=== PATIENT | female | born 1990 | race Caucasian/White ===

== ENCOUNTER 2017-12-08 23:32 | Inpatient (IN) ==
[2017-12-08] MEDS ORDERED: Famotidine 20 MG/2 ML VIAL IVP PRN (23:36)
[2017-12-08] MEDS ORDERED: Metoclopramide 10 MG/2 ML VIAL IVP PRN (23:36)
[2017-12-08] MEDS ORDERED: Naloxone 0.4 MG/ML INJ IVP PRN (23:36)
[2017-12-08] MEDS ORDERED: *HR* Nalbuphine 20 MG/ML AMPUL IVP PRN (23:36)
[2017-12-08] MEDS ORDERED: Ringers Solution, Lactated 1,000 ML IVC SCH (23:45)
[2017-12-08 23:57] LABS: Basophils % 0.3 %; Eosinophils # 0.1 K/mcL (0.0-0.6); Eosinophils % 0.8 %; Hematocrit 40.8 % (35.3-44.9); Hemoglobin 14.1 g/dL (11.5-15.4); Immature Granulocytes % 0.7 % (0-4); Lymphocytes # 2.7 K/mcL (0.6-4.6); Lymphocytes % 21.7 %; Mean Corpuscular HGB Conc 34.6 g/dL (31.6-35.5); Mean Corpuscular Hemoglobin 31.7 pg (28.0-33.3); Mean Corpuscular Volume 91.7 fL (83.0-100.0); Mean Platelet Volume 10.9 fL (9.4-12.4); Monocytes # 0.7 K/mcL (0.0-1.3); Monocytes % 5.2 %; Platelet Count 135 K/mcL (140-400); Red Blood Count 4.45 M/mcL (3.82-4.97); Red Cell Distribution Width 13.4 % (11.5-14.5); Segmented Neutrophils % 71.3 %
[2017-12-09] MEDS ORDERED: Epidural Premix (fent/bupiv) 110 ML EP SCH
[2017-12-09] MEDS ORDERED: *HR* Ropivacaine/PF 0.2% 20 ML VIAL EP ONE
[2017-12-09] MEDS ORDERED: *HR* FentaNYL (PF) 100 MCG/2 ML VIAL EP ONE
[2017-12-09] MEDS ORDERED: *HR* FentaNYL (PF) 100 MCG/2 ML VIAL ONE (00:03)
[2017-12-09] MEDS ORDERED: Epidural Premix (fent/bupiv) 110 ML EP ONE (00:03)
--- NOTE | 2017-12-09 00:30 | Anesthesia Evaluation PreOp ---
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 Any Significant HX Other Medical History: GERD Anesthesia History: No Prior Anesthetic Complications, Past Anesthesia (luz x2) : Yes Test: Positive Alcohol Use: none Drug use: none Medications and Allergies Tablet 1 tab PO DAILY 12/08/17 [History] 3 Allergy/AdvReac Type Severity Reaction Status Date / Time No Known Allergies Allergy Verified 12/08/17 23:36 - Meds/Allergy Pre-op Review Medications Reviewed: Yes Allergies Reviewed: Yes Beta Blockers on Current Med List: No Anesthesia Results - Labs 12/08/17 23:40 Anesthesia Exam 134/78 88 16 fht 143 Height: 5'6" Weight: 83 NPO (# of Hours): 5 Pain Scale: 8 Pain Scale Used: Numeric (1 - 10) - HEENT Pupil (Motor): Pupils equal Mallampati: II Teeth: Normal Oral Opening: Greater than 3 - DRAWING KILN SUPERVISOR LOC: Oriented DRAWING KILN SUPERVISOR Motor: Normal RUE, Normal LUE, Normal RLE, Normal LLE, Normal Face DRAWING KILN SUPERVISOR Sensory: Normal: RUE, LUE, RLE, LLE, Face - Cardiac Rhythm: Regular Murmur: None - Pulmonary Breath Sounds: bilateral Clear Respiratory Effort: Symmetrical Anesthesia Assess/Plan Anesthetic Plan: Regional (risks discussed questions answered, consented) Monitoring Plan: Standard Monitors Recovery Plan: Other
--- NOTE | 2017-12-09 00:33 | Anesthesia Procedures ---
Date of Encounter: 12/09/17 Time of Encounter: 00:31 Procedures: Anesthesia - Epidural/Spinal Patient ID/Chart reviewed: Yes Patient examined: Yes OB Eval: Gestational age: 39 OB Eval: : 3 OB Eval: Hx Para: 2 OB Eval: Dilated at (cm): 9 OB Eval: Contractions: Non-stressed pattern Consent Obtained: Yes Supplemental Oxygen: None/Room Air Site Prep: Aseptic Technique, Sterile prep and drape, Povidone-Iodine 1% Patient position: upright Local Anesthetic: Lidocaine 1% Amount of Local Anesthetic used: 3 Touhy Needle Gauge: 18 Touhy Needle Depth (cm): 8 Catheter Depth at Skin (cm): 15 Test Dose (1.5% Lido + Epi): Volume given (mls): 3 Test Dose Result: Negative Loading Dose: Fentanyl (mcg): 100 Loading Dose Administered: Thru Touhy Needle Infusion Med: 0.125% Bupivacaine w/ 2 mcg/ml Fentanyl Infusion Rate (mls/hr): [address]: Tegaderm Interspace Used: L2-L3 Loss of Resistance (GUNNER): Yes Blood: No CSF: No Paresthesia: No Procedure: aseptic, daily well, vss Vitals + FHT's: 133/85 88 18 fht 144
[2017-12-09 00:54] LABS: Amphetamine Screen,Urine Negative ng/mL (Cutoff=1000); Barbiturate Screen,Urine Negative ng/mL (Cutoff=200); Benzodiazepines Screen,Urine Negative ng/mL (Cutoff=200); Cannabinoid Screen,Urine Negative ng/mL (Cutoff = 50); Cocaine Screen,Urine Negative ng/mL (Cutoff= 300); Opiate Screen,Urine Negative ng/mL (Cutoff=300); Phencyclidine Screen,Urine Negative ng/mL (Cutoff=25)
[2017-12-09] MEDS ORDERED: EPHEDrine 50 MG/ML VIAL ONE (00:57)
[2017-12-09] MEDS ORDERED: Oxytocin 20 units/ LR 1000 mL 20 UNIT/1,000 ML BAG IVC ONE (01:41)
--- NOTE | 2017-12-09 02:10 | OB/GYN History & Physical ---
Date of Encounter: 12/09/17 Time of Encounter: 02:07 Assessment and Plan (1) Spontaneous onset of labor Current visit: Yes Status: Acute Admit for expectant management. Epidural per pt request. (2) 39 weeks gestation of Current visit: Yes Status: Acute History of Present Illness Chief complaint: contractions HPI: Ms. Mcgregor is a 27 year old female presenting with c/o contractions that started at 1830. She denies LOF or VB. Good FM. No other complaints upon arrival. This has been complicated by a history of macrosomic infant. Blood type O positive Rubella immune Serologies negative GBS negative Past Med Surg Social Fam HX - Past Medical History Medical history: no medical history Psychiatric history: anxiety - Past Surgical History Surgical History: no surgical history - Social History Smoking Status: Former smoker Smokeless Tobacco Status: No Alcohol use: none Drug use: none - Family History Father Adopted: No Hx Family Cardiac Disorders: Yes (hypertension) Hx Family Respiratory Disorders: No Hx Family Cancer: No Hx Family GI Disorders: No Hx Family Genitourinary Disorders: No Hx Family Endocrine Disorder: Yes (diabetes) Hx Family Musculoskeletal Disorders: No Hx Family Neuromuscular Disorders: No Hx Family Neurologic Disorders: No Hx Family HEENT Disorders: No Hx Family Autoimmune Disorders: No Hx Family Reproductive Disorders: No Hx Family Psychosocial Disorders: No Hx Family Medical Disorders: No Obstetrical History - Pregnancies : 3 Para: 2 Term: 2 Livin Medications and Allergies Tablet 1 tab PO DAILY 12/08/17 [History] 3 Allergy/AdvReac Type Severity Reaction Status Date / Time No Known Allergies Allergy Verified 12/08/17 23:36 Review of System OB All systems PM: reviewed and no additional remarkable complaints except as stated Exam - Constitutional Constitutional: well developed, well nourished - HEENT HEENT: Mucus Membranes Moist - Lungs Respiratory exam: CTAB - Cardiovascular Cardiovascular exam: RRR - Abdomen Abdomen: Present: gravid, non tender - Extremities Extremities exam: normal inspection - Vagina Vagina: Present: normal moisture - Cervix Dilation: 8 (6-7 on arrival and progressed rapidly to 8 per RN) - Anus/Rectum Anus/Rectum: Present: normal perianal skin Results Result Diagrams: 12/08/17 23:40 Abnormal lab results WBC 12.6 K/mcL (4.3-11.1) H 12/08/17 23:40 Plt Count 135 K/mcL (140-400) L 12/08/17 23:40 Neutrophils # 9.0 K/mcL (1.6-8.9) H 12/08/17 23:40 All other labs normal. - VTE Reasons for not Prescribing Prophylaxis: Treatment not Indicated - Low risk for VTE
--- NOTE | 2017-12-09 02:17 | OB/GYN Procedure Note ---
Delivery - Delivery Date: 12/09/17 Provider: Evelia Gonzalez Intrapartum events: none Delivery induction: none Delivery monitor: external FHT, external uterine Anesthesia: epidural Estimated Blood Loss: 100 - (s) A Infant Delivery Date: 12/09/17 Delivery Time: 01:45 Presentation: vertex Position: [place] Route of delivery: Gender: Male Viability: Viable Pounds: 7 Ounces: 7 Weight Gram: 3.36 kg at 1 minute: 9 at 5 mins: 9 Shoulder Dystocia: not encountered Specimens collected: cord blood Placenta: spontaneous Cord: 3 umbilical vessels - Repair Episiotomy: none Laceration Description: None - Complications Delivery complications: none Delivery comments: Pt presented in active labor and progressed rapidly to complete dilation after epidural. She pushed effectively to for viable male weighing 7lbs 7oz with apgars 9 at one minute and 9 at five minutes. After pulsations ceased the cord was clamped and cut and the placenta delivered spontaneous and intact. No lacerations noted upon inspection. EBL 100ml. Mother and baby stable in DR following procedure. - Disposition Mom disposition: stable in LDR disposition: stable in LDR
[2017-12-09] MEDS ORDERED: Oxytocin 20 units/ LR 1000 mL 20 UNIT/1,000 ML BAG IVC SCH (02:39)
[2017-12-09] MEDS ORDERED: Measles/Mumps/Rubella Vacc 0.5 ML VIAL SQ PRN (02:39)
[2017-12-09] MEDS: Ibuprofen 600 MG TABLET PO PRN ×3 (03:05→19:59)
[2017-12-09] MEDS: Prenatal Vit/FA 1 EACH TABLET PO SCH (07:48)
[2017-12-09] MEDS: Acetaminophen 325 MG TABLET PO PRN ×2 (12:23→21:49)
[2017-12-10] MEDS ORDERED: Lanolin 7 G OINT...G. TP PRN (04:20)
[2017-12-10 04:25] LABS: Immature Granulocytes % 0.8 % (0-4); Monocytes % 4.8 %
[2017-12-10 04:26] LABS: Basophils % 0.4 %; Eosinophils # 0.2 K/mcL (0.0-0.6); Eosinophils % 1.9 %; Hematocrit 35.7 % (35.3-44.9); Hemoglobin 11.7 g/dL (11.5-15.4); Immature Platelets 11.4 % (1.1-6.1); Lymphocytes # 3.5 K/mcL (0.6-4.6); Lymphocytes % 36.4 %; Mean Corpuscular HGB Conc 32.8 g/dL (31.6-35.5); Mean Corpuscular Hemoglobin 31.2 pg (28.0-33.3); Mean Corpuscular Volume 95.2 fL (83.0-100.0); Mean Platelet Volume 11.4 fL (9.4-12.4); Monocytes # 0.5 K/mcL (0.0-1.3); Neutrophils # 5.4 K/mcL (1.6-8.9); Nucleated Red Blood Cells 0.3 /100 WBC (0); Platelet Count 107 K/mcL (140-400); Red Blood Count 3.75 M/mcL (3.82-4.97); Red Cell Distribution Width 13.7 % (11.5-14.5); Segmented Neutrophils % 55.7 %
[2017-12-10] MEDS ORDERED: Ringers Solution, Lactated 1,000 ML ONE (07:26)
[2017-12-10] MEDS ORDERED: *HR* Propofol 200 MG/20 ML VIAL IVP ONE (07:42)
[2017-12-10] MEDS ORDERED: *HR* FentaNYL (PF) 100 MCG/2 ML VIAL ONE (07:42)
[2017-12-10] MEDS ORDERED: Dexamethasone 4 MG/ML VIAL ONE (07:43)
[2017-12-10] MEDS ORDERED: Lidocaine -MPF 2% 5 ML VIAL ONE (07:43)
[2017-12-10] MEDS ORDERED: *HR* Succinylcholine 200 MG/10 ML VIAL IVP ONE (07:43)
[2017-12-10] MEDS ORDERED: Ondansetron 4 MG/2 ML VIAL ONE (07:43)
--- NOTE | 2017-12-10 09:20 | OB/GYN Procedure Note ---
OB-[facility]: Procedure - Diagnosis Date of procedure: 12/10/17 Pre-op diagnosis: undesired fertility desires permanent sterilization Post-op diagnosis: same - Procedure Procedure: Bilateral partial salpingectomy Surgeon: Janelle Sherman Was there an hr assistant present: Yes Lead Driver: Dilip Delatorre Anesthesia provider: Scott Mason Anesthesia Type: General Estimated blood loss (cc): 10 Fluids: crystalloid Procedure Complications: none Specimens collected: bilateral partial tubal segments Disposition: PACU Findings: normal bilateral tubes Narrative: Patient was taken operative suite and placed under general she without difficulty. Timeout was then performed. Antibiotics are not indicated. SCDs are on and active.An infraumbilical incision is then made and carried through to the underlying layer fascia the fascia was then tented up and entered sharply with the Metzenbaum scissors. The peritoneum is then entered bluntly. Patient is then placed in Trendelenburg position and the left tube is identified and followed to the fimbriated end. A knuckle of tube in the midportion is then double suture ligated using 0 plain gut and transected. Hemostasis is assured and the tube was returned to the abdomen. The right tube was then grasped and followed to the fimbriated end. A knuckle of tube in the midportion is then double suture ligated using 0 plain gut and transected. Hemostasis is assured and the tube was returned to the abdomen. The fascia was then closed using 0 Vicryl in a running fashion. The skin is reapproximated using 4-0 Vicryl. Sterile dressing is then applied. Patient tolerated the procedure well. She is extubated and taken to recovery in stable condition.
[2017-12-10] MEDS ORDERED: Ondansetron 4 MG/2 ML VIAL IVP PRN (09:21)
[2017-12-10] MEDS ORDERED: *HR* OxyCODONE Immed Rel 5 MG TABLET PO PRN (09:21)
[2017-12-10] MEDS: MORPHINE SUL Oral CONC 10 MG/0.5 ML ORAL.SYG SL PRN ×2 (09:38→09:50)
[2017-12-10] MEDS: Ibuprofen 600 MG TABLET PO PRN ×2 (10:33→15:53)
[2017-12-10] MEDS: Prenatal Vit/FA 1 EACH TABLET PO SCH (11:07)
[2017-12-10] MEDS: *HR* OxyCODONE/APAP 5/325 TABLET PO PRN ×3 (13:33→21:43)
--- NOTE | 2017-12-10 13:38 | OB/GYN Progress Note ---
Date of Encounter: 12/10/17 Time of Encounter: 13:36 - Assessment and Plan (1) Vaginal delivery Current Visit: Yes Status: Acute Stable PPD#1/POD#0 Pain controlled on po pain medication. Pt desires to stay inpatient until tomorrow for pain management, Continue current management plan Anticipate DC tomorrow. (2) S/P tubal ligation Current Visit: Yes Status: Acute Subjective - Subjective Patient reports: appetite normal, voiding normally, ambulating normally : doing well Objective - Latest Vital Signs Latest vital signs: Vital Signs Temp Pulse Pulse Resp BP Pulse Ox 12/10/17 11:34 97.9 F 76 18 119/79 96 12/10/17 10:19 83 18 127/82 12/10/17 10:16 77 18 133/91 98 12/10/17 10:00 98.9 F 89 122/85 98 12/10/17 09:52 98.1 F 93 18 107/98 96 12/10/17 09:30 98.1 F 90 16 114/85 97 12/10/17 09:20 97.7 F 89 16 124/89 95 12/09/17 19:59 16 12/09/17 19:50 98.0 F 84 16 108/73 97 12/09/17 16:00 98.0 F 78 78 16 109/88 Intake and Output 12/09/17 12/10/17 12/10/17 23:59 07:59 15:59 Intake Total 460 / 460 Output Total 800 / 800 2100 / 2100 Balance -340 / -340 -2100 / -2100 Intake: Oral 460 / 460 Output: Urine 800 / 800 2100 / 2100 Other: Meal Dinner Percent of Meal Consumed 100% Weight 81.148 kg Patient Weight 12/10/17 23:59 Weight 81.148 kg - Exam Lungs: bilateral: normal Chest: Normal S1, Normal S2 Extremities: Present: normal Abdomen: Present: normal appearance, soft Uterus: Present: firm Uterus Position: At Umbilicus - Labs Labs: Laboratory Results - last 24 hr 12/10/17 04:13 WBC 9.7 RBC 3.75 L Hgb 11.7 D Hct 35.7 MCV 95.2 MCH 31.2 MCHC 32.8 RDW 13.7 Plt Count 107 L MPV 11.4 Immature Gran % 0.8 Seg Neutrophils % 55.7 Lymphocytes % 36.4 Monocytes % 4.8 Eosinophils % 1.9 Basophils % 0.4 Neutrophils # 5.4 Lymphocytes # 3.5 Monocytes # 0.5 Eosinophils # 0.2 Basophils # 0.0 Nucleated RBCs/100 WBC 0.3 H Immature Plt Fraction 11.4 H
[2017-12-11] MEDS: *HR* OxyCODONE/APAP 5/325 TABLET PO PRN ×2 (03:27→08:28)
[2017-12-11] MEDS: Ibuprofen 600 MG TABLET PO PRN (05:00)
[2017-12-11 07:51] VITALS: BP 104/61
[2017-12-11] MEDS: Prenatal Vit/FA 1 EACH TABLET PO SCH (08:28)
--- NOTE | 2017-12-11 08:32 | Discharge Summary ---
Date of Encounter: 12/11/17 Time of Encounter: 08:32 - Discharge Diagnosis (1) S/P tubal ligation Priority: Secondary Status: Acute Comments: PPD#2/POD#1 -- pain control improved on PO meds; will d/c on PO pain Rx (2) Vaginal delivery Priority: Primary Status: Acute Comments: Pt meeting all milestones. (3) 39 weeks gestation of Priority: Secondary Status: Acute - Discharge Medications Prescriptions: OxyCODONE/APAP 5/325 [Percocet 5/325 MG] 1 each PO Q4HR PRN 7 Days #20 tablet PRN Reason: Pain Acetaminophen [Tylenol] 650 mg PO Q6HR PRN #120 tablet PRN Reason: Mild Pain Breast Pump [BREAST PUMP] 1 each .ROUTE AD #1 each Docusate [Colace] 100 mg PO BID #60 capsule Lanolin [Lansinoh] 1 appl TP TID PRN 30 Days #1 oint...g. PRN Reason: Breast Feeding Home Medications: Tablet 1 tab PO DAILY 12/08/17 [History] Acetaminophen [Tylenol] 650 mg PO Q6HR PRN #120 tablet 12/11/17 [Rx] Breast Pump [BREAST PUMP] 1 each .ROUTE AD #1 each 12/11/17 [Rx] Docusate [Colace] 100 mg PO BID #60 capsule 12/11/17 [Rx] Lanolin [Lansinoh] 1 appl TP TID PRN 30 Days #1 oint...g. 12/11/17 [Rx] OxyCODONE/APAP 5/325 [Percocet 5/325 MG] 1 each PO Q4HR PRN 7 Days #20 tablet [Rx] Vit/FA 1 each PO DAILY tablet 12/11/17 [Rx] Allergies/Adverse Reactions: 3 Allergy/AdvReac Type Severity Reaction Status Date / Time No Known Allergies Allergy Verified 12/08/17 23:36 Data Procedures and tests throughout hospitalization: Laboratory Tests 12/08/17 12/08/17 12/10/17 23:40 23:40 04:13 WBC 12.6 H 9.7 RBC 4.45 3.75 L Hgb 14.1 11.7 D Hct 40.8 35.7 MCV 91.7 95.2 MCH 31.7 31.2 MCHC 34.6 32.8 RDW 13.4 13.7 Plt Count 135 L 107 L MPV 10.9 11.4 Immature Gran % 0.7 0.8 Seg Neutrophils % 71.3 55.7 Lymphocytes % 21.7 36.4 Monocytes % 5.2 4.8 Eosinophils % 0.8 1.9 Basophils % 0.3 0.4 Neutrophils # 9.0 H 5.4 Lymphocytes # 2.7 3.5 Monocytes # 0.7 0.5 Eosinophils # 0.1 0.2 Basophils # 0.0 0.0 Nucleated RBCs/100 WBC 0.3 H Immature Plt Fraction 11.4 H Urine Opiates Screen Negative Ur Barbiturates Screen Negative Ur Phencyclidine Scrn Negative Ur Amphetamines Screen Negative U Benzodiazepines Scrn Negative Urine Cocaine Screen Negative U Marijuana (THC) Screen Negative Date of admission: 12/08/17 23:36 Primary care physician: PCP NONE Consults: 12/09/17 02:39 Consult to Certified Medication Technician [CONS] Routine Comment: Vaginal delivery, consult needed 12/09/17 02:59 Consult to Jewellery Designer [CONS] Stat Reason for SW Consult: patient states father of the baby is not involved and wants a DNA test. Discharging clinician: Edis Hernandez Anticipated date of discharge: 12/11/17 - Patient Status Disposition: Home, Self-Care Condition: Good Functional capacity at discharge: independent ambulation Overall status at discharge: patient is progressing back to baseline - Discharge Instructions Follow Up With: NONE,PCP [Primary Care Provider] - - Diet and Activity Activity: increase activity as tolerated Diet: regular diet Hospital Course PUBLIC TRANSIT BUS DRIVER Hospital course: PPD2/POD1 -- improved incisional pain. Controlled with compression belt and PO meds. Patient denies any new symptoms/complaints. Is able to ambulate. [facility] has strong support system at home. Desires discharge. - Delivery Date: 12/09/17 Provider: Evelia Gonzalez Intrapartum events: none Delivery induction: none Delivery monitor: external FHT, external uterine Anesthesia: epidural Estimated Blood Loss: 100 - (s) Infant A Delivery Date: 12/09/17 Infant Delivery Time: 01:45 Presentation: vertex Position: [place] Route of delivery: Gender: Male Viability: Viable Pounds: 7 Ounces: 7 Weight Gram: 3.36 kg at 1 minute: 9 at 5 mins: 9 Shoulder Dystocia: not encountered Specimens collected: cord blood Placenta: spontaneous Cord: 3 umbilical vessels - Repair Episiotomy: none Laceration Description: None - Complications Delivery complications: none Delivery comments: Pt presented in active labor and progressed rapidly to complete dilation after epidural. She pushed effectively to [facility] for viable male weighing 7lbs 7oz with apgars 9 at one minute and 9 at five minutes. After pulsations ceased the cord was clamped and cut and the placenta delivered spontaneous and intact. No lacerations noted upon inspection. EBL 100ml. Mother and baby stable in DR following procedure. Date of procedure: 12/10/17 Pre-op diagnosis: undesired fertility desires permanent sterilization Post-op diagnosis: same - Procedure Procedure: Bilateral partial salpingectomy Surgeon: Janelle Sherman Was there an career services assistant present: Yes Local Area Network Administrator: Dilip Delatorre Anesthesia provider: Scott Mason Anesthesia Type: General Estimated blood loss (cc): 10 Fluids: crystalloid Procedure Complications: none Specimens collected: bilateral partial tubal segments Disposition: PACU Findings: normal bilateral tubes Narrative: Patient was taken operative suite and placed under general she without difficulty. Timeout was then performed. Antibiotics are not indicated. SCDs are on and active.An infraumbilical incision is then made and carried through to the underlying layer fascia the fascia was then tented up and entered sharply with the Metzenbaum scissors. The peritoneum is then entered bluntly. Patient is then placed in Trendelenburg position and the left tube is identified and followed to the fimbriated end. A knuckle of tube in the midportion is then double suture ligated using 0 plain gut and transected. Hemostasis is assured and the tube was returned to the abdomen. The right tube was then grasped and followed to the fimbriated end. A knuckle of tube in the midportion is then double suture ligated using 0 plain gut and transected. Hemostasis is assured and the tube was returned to the abdomen. The fascia was then closed using 0 Vicryl in a running fashion. The skin is reapproximated using 4-0 Vicryl. Sterile dressing is then applied. Patient tolerated the procedure well. She is extubated and taken to recovery in stable condition. Time Attestation: Total time spent providing and/or coordinating discharge services: Time Spent: Less than 30 minutes Exam - Constitutional Vitals: Temp Pulse Resp BP Pulse Ox 98.4 F 88 16 104/61 95 12/11/17 07:50 12/11/17 07:50 12/11/17 07:50 12/11/17 07:50 12/10/17 19:30 General appearance IM: A&O X 3, no acute distress Exam: Gen: AOx3, no acute distress, well-nourished HEENT: normocephalic, no scleral icterus/injection, pupils equal/round, oral mucosa pink/moist Cardio: RRR without murmurs or gallops Pulm: CTAB, no wheezes/rales/rhonchi, normal respiratory effort Abd: soft, tender to periumbilical region (trocar sites) without redness, dehiscence, purulent drainage Ext/Neuro: pulses 2+ b/l DP, patellar reflexes 2+ b/l - Respiratory Respiratory exam: Present: CTAB - Cardiovascular Cardiovascular exam IM: Present: RRR - GI/Abdominal GI/Abdominal exam IM: soft Incision: intact - Uterine Tone: Firm - Neurological Exam Neurological exam: normal gait, oriented X3 - Psychiatric Additional comments: reports good mood - VTE Reasons for not Prescribing Prophylaxis: Treatment not Indicated - Low risk for VTE Documentation of Mechanical Device: Graduated compression elastic hosiery
== END 2017-12-11 13:25 | disposition home or self-care (01) | DRG 541 ==
LOC: 1NENULAB → 1NENUOBS 12-09 04:02
PROVIDERS: ADMIT Registered Nurse; ATTEND Registered Nurse